=== PATIENT | male | born 1975 | race Caucasian/White ===

== ENCOUNTER → 2023-11-21 11:39 | Outpatient (REF) | payer BC, SELFPAY | LOC: RAD 11:39 | PROVIDERS: ATTENDING PHYSICIAN Family Medicine | DX: R55 Syncope and collapse (principal); M25.552 Pain in left hip; M54.2 Cervicalgia; M25.531 Pain in right wrist | CPT/HCPCS: 72050; 73110; 73502 ==

== ENCOUNTER → 2024-03-12 10:11 | Outpatient (REF) | payer BC, SELFPAY | LOC: RAD 10:11 | PROVIDERS: ATTENDING PHYSICIAN Physician Assistant | DX: R49.0 Dysphonia (principal); R13.19 Other dysphagia | CPT/HCPCS: 70491; 74246; Q9967 ==